=== PATIENT | male | born 1990 | race Caucasian/White ===

== ENCOUNTER 2016-07-20 17:25 | Emergency (ER) | payer OTHER ==
[2016-07-20 18:13] LABS: BASO % 0.4 % (0.2-1.2); EOS % 0.3 % (0.8-7.0); GRAN # 6.2 10_X3_uL (1.8-5.4); HEMATOCRIT 41.3 % (40-51); LYMPH # 2.3 10_X3_uL (1.3-3.6); MEAN CORPUSCULAR HEMOGLOBIN 30.4 pg (27.0-33.0); MEAN CORPUSCULAR HGB CONC 36.3 g/dL (32.0-36.0); MEAN CORPUSCULAR VOLUME 83.6 fL (79-92); MEAN PLATELET VOLUME 9.9 fl (7.5-11.5); MONO # 0.6 10_X3_uL (0.3-0.8); MONO % 6.3 % (5.3-12.2); PLATELET COUNT 353 x10_3/uL (163-337); RED BLOOD COUNT 4.94 x10_6/uL (4.6-6.1); RED CELL DISTRIBUTION WIDTH 12.2 % (11.6-14.4); WHITE BLOOD COUNT 9.1 x10_3/uL (4.2-9.1)
== END 2016-07-20 20:25 | disposition home or self-care (01) ==
LOC: ER 17:25
PROVIDERS: General Practice
DX: M51.26 Other intervertebral disc displacement, lumbar region (principal); M99.53 Intervertebral disc stenosis of neural canal of lumbar region; M54.5 Low back pain; M48.06 Spinal stenosis, lumbar region; Z88.6 Allergy status to analgesic agent
CPT/HCPCS: 36415; 72128; 72131; 85025; 99283-25